=== PATIENT | female | born 1945 | race Hispanic/Latino ===

== ENCOUNTER 2020-11-17 20:53 | Observation (INO) | payer MEDICARE, OTHER ==
[2020-11-17] MEDS ORDERED: ADENOSINE 6MG VIAL IV ONE (21:23)
[2020-11-17 21:32] LABS: BASOPHILS % (AUTO) 0.9 % (0.0-5.0); EOSINOPHILS % (AUTO) 0.3 % (0.0-8.0); HEMATOCRIT 52.4 % (36-48); LYMPHOCYTES % (AUTO) 14.3 % (21.0-51.0); MEAN CORPUSCULAR HEMOGLOBIN 28.6 pg (27.0-33.0); MEAN CORPUSCULAR VOLUME 86.8 fL (79-99); MONOCYTES % (AUTO) 11.2 % (3.0-13.0); NEUTROPHILS % (AUTO) 72.8 % (40.0-77.0); PLATELET COUNT (AUTO) 333 K/uL (130-400); RED BLOOD CELL COUNT(AUTO) 6.04 MIL/uL (4.00-5.50); RED CELL DISTRIBUTION WIDTH 13.9 % (11.0-15.5); WHITE BLOOD COUNT (AUTO) 16.8 K/uL (4.8-10.8)
[2020-11-17] MEDS ORDERED: 0.9%NACL 100ML 100 ML IV ONE (21:35)
[2020-11-17] MEDS ORDERED: FUROSEMIDE 40MG VIAL ONE (21:35)
[2020-11-17] MEDS ORDERED: DILTIAZEM 125 MG/25 ML INJ IV ONE (21:35)
[2020-11-17] MEDS ORDERED: DILTIAZEM 50MG VIAL IV ONE (21:51)
[2020-11-17 21:59] LABS: INR 1.24 (0.85-1.15)
[2020-11-17 22:01] LABS: PARTIAL THROMBOPLASTIN TIME 31.2 SEC (26.3-35.5)
[2020-11-17 22:02] LABS: B-TYPE NATRIURETIC PEPTIDE 1410 pg/mL (0-100)
[2020-11-17 22:13] LABS: ABG BASE EXCESS -0.6 mmol/L (-2.0-3.0); ABG HCO3 22.3 mmol/L (21.0-28.0); ABG OXYGEN SATURATION 85.7 % (95.0-99.0); ABG PCO2 32 mmHg (32-45)
[2020-11-17 22:26] LABS: CREATININE 1.3 mg/dL (0.5-1.5); POTASSIUM 3.6 mmol/L (3.5-5.1)
[2020-11-17 22:31] LABS: ALBUMIN 2.9 g/dL (3.5-5.0); BILIRUBIN,TOTAL 0.5 mg/dL (0.2-1.0); TOTAL PROTEIN, SERUM 7.2 g/dL (6.0-8.3)
[2020-11-18] MEDS ORDERED: CEFTRIAXONE 1G VIAL ONE (01:28)
[2020-11-18] MEDS ORDERED: AZITHROMYCIN 500MG+NS 250ML 250 ML IV ONE (01:33)
[2020-11-18] MEDS ORDERED: ZOSYN 3.375GM+NS 50ML 50 ML IV ONE (05:48)
[2020-11-18 06:18] LABS: BASOPHILS % (AUTO) 0.6 % (0.0-5.0); EOSINOPHILS % (AUTO) 0.6 % (0.0-8.0); HEMATOCRIT 48.6 % (36-48); LYMPHOCYTES % (AUTO) 20.3 % (21.0-51.0); MEAN CORPUSCULAR HEMOGLOBIN 28.1 pg (27.0-33.0); MEAN CORPUSCULAR HGB CONC 33.1 g/dL (32.0-36.0); NEUTROPHILS % (AUTO) 69.2 % (40.0-77.0); PLATELET COUNT (AUTO) 316 K/uL (130-400); RED BLOOD CELL COUNT(AUTO) 5.72 MIL/uL (4.00-5.50); RED CELL DISTRIBUTION WIDTH 13.8 % (11.0-15.5); WHITE BLOOD COUNT (AUTO) 14.5 K/uL (4.8-10.8)
[2020-11-18 06:35] LABS: CREATININE 1.1 mg/dL (0.5-1.5); POTASSIUM 3.4 mmol/L (3.5-5.1)
[2020-11-18 06:41] LABS: B-TYPE NATRIURETIC PEPTIDE 2140 pg/mL (0-100)
[2020-11-18 07:39] LABS: ABG BASE EXCESS 0.9 mmol/L (-2.0-3.0); ABG HCO3 25.2 mmol/L (21.0-28.0); ABG OXYGEN SATURATION 97.4 % (95.0-99.0); ABG PCO2 39 mmHg (32-45)
[2020-11-18] MEDS ORDERED: FUROSEMIDE 40MG VIAL ONE ×2 (10:05→23:16)
[2020-11-18] MEDS ORDERED: METOPROLOL TARTRATE 25 MG TAB ONE ×2 (10:06→23:17)
[2020-11-18] MEDS ORDERED: ENOXAPARIN SODIUM 30 MG/0.3 ML SQ ONE ×2 (10:06→23:17)
[2020-11-18] MEDS ORDERED: LIDOCAINE HCL-MPF 1% 2ML VIAL IV PRN (14:15)
[2020-11-18] MEDS ORDERED: MAGNESIUM 2GM PREMIX 50ML 50 ML IV PRN (14:15)
[2020-11-18] MEDS ORDERED: KCL 20 MEQ ERTAB PO PRN (14:15)
[2020-11-18] MEDS ORDERED: POTASSIUM CHLORIDE 20MEQ/100ML 100 ML IV PRN (14:15)
[2020-11-18] MEDS ORDERED: POTASSIUM CHLORIDE 10% ELIXIR 20 MEQ/15 ML UDCUP PO PRN (14:15)
[2020-11-18] MEDS ORDERED: CEFTRIAXONE 1G VIAL IVP SCH (15:00)
[2020-11-18] MEDS ORDERED: METOPROLOL TARTRATE 25 MG TAB PO SCH (21:00)
[2020-11-19 05:32] LABS: HEMATOCRIT 49.1 % (36-48); MEAN CORPUSCULAR HEMOGLOBIN 28.2 pg (27.0-33.0); MEAN CORPUSCULAR VOLUME 85.4 fL (79-99); RED BLOOD CELL COUNT(AUTO) 5.75 MIL/uL (4.00-5.50); RED CELL DISTRIBUTION WIDTH 13.8 % (11.0-15.5); WHITE BLOOD COUNT (AUTO) 14.9 K/uL (4.8-10.8)
[2020-11-19 05:48] LABS: CREATININE 1.4 mg/dL (0.5-1.5); MAGNESIUM 2.3 mg/dL (1.80-2.40); POTASSIUM 3.4 mmol/L (3.5-5.1)
[2020-11-19] MEDS ORDERED: FUROSEMIDE 40MG VIAL IV SCH (08:30)
[2020-11-19] MEDS ORDERED: NITROGLYCERIN 1GM OINT 1 INCH/1GM TD SCH (09:00)
[2020-11-19] MEDS ORDERED: PANTOPRAZOLE 40 MG TAB DR PO SCH (09:00)
[2020-11-19] MEDS ORDERED: ENOXAPARIN SODIUM 30 MG/0.3 ML SQ SCH ×2 (09:00)
[2020-11-19] MEDS ORDERED: METOPROLOL TARTRATE 25 MG TAB PO SCH (09:02)
[2020-11-19] MEDS ORDERED: GLUCAGON 1MG KIT 1 MG ML IM PRN (09:15)
[2020-11-19] MEDS ORDERED: DEXTROSE 50%-WATER 50 ML DISP.SYRIN IV PRN (09:15)
[2020-11-19] MEDS ORDERED: ZOSYN 3.375GM+NS 50ML 50 ML IV ONE (10:03)
[2020-11-19] MEDS ORDERED: FUROSEMIDE 40MG VIAL ONE (10:03)
[2020-11-19] MEDS ORDERED: PANTOPRAZOLE 40 MG TAB DR ONE (10:04)
[2020-11-19] MEDS ORDERED: METOPROLOL TARTRATE 25 MG TAB ONE (10:04)
[2020-11-19] MEDS ORDERED: NITROGLYCERIN 1GM OINT 1 INCH/1GM TD ONE (10:04)
[2020-11-19] MEDS ORDERED: ENOXAPARIN SODIUM 30 MG/0.3 ML SQ ONE (10:04)
[2020-11-19] MEDS ORDERED: INSULIN R PO SS1 SQ SCH (11:30)
[2020-11-19] MEDS ORDERED: KCL 20 MEQ ERTAB PO ONE (11:38)
[2020-11-19] MEDS ORDERED: 0.9%NACL 50ML 50 ML IV ONE (14:09)
[2020-11-19] MEDS ORDERED: CEFTRIAXONE 1G VIAL ONE (14:09)
[2020-11-19] MEDS ORDERED: ZOSYN 3.375GM+NS 50ML 50 ML IV SCH (21:00)
== END 2020-11-19 17:24 | disposition hospice, home (50) ==
LOC: EDBD 20:53 → EDH 20:53 → EDHIP 11-18 01:27
PROVIDERS: ADMIT Internal Medicine Pulmonary Disease; ATTEND Internal Medicine Pulmonary Disease
DX: I48.0 Paroxysmal atrial fibrillation (principal); Z20.828 Contact with and (suspected) exposure to other viral communicable diseases; J84.10 Pulmonary fibrosis, unspecified; I20.9 Angina pectoris, unspecified; I11.0 Hypertensive heart disease with heart failure; I50.23 Acute on chronic systolic (congestive) heart failure; J18.9 Pneumonia, unspecified organism; R09.02 Hypoxemia; E11.9 Type 2 diabetes mellitus without complications; E87.6 Hypokalemia; D72.829 Elevated white blood cell count, unspecified; E03.9 Hypothyroidism, unspecified; E78.5 Hyperlipidemia, unspecified; Z87.891 Personal history of nicotine dependence; Z79.899 Other long term (current) drug therapy
CPT/HCPCS: 36415 ×3; 36600; 71045; 80048 ×2; 80053; 82803 ×2; 82948 ×2; 83735; 83880 ×3; 84484 ×3; 85025 ×2; 85027; 85610; 85730; 87040 ×2; 87426; 93005 ×3; 93306; 93356; 99291; G0378 ×40; J0153; J0456; J0696 ×2; J1650 ×3; J1940 ×4; J2543 ×2; J3490 ×2; U0003